=== PATIENT | male | born 1980 | race Caucasian/White ===

== ENCOUNTER → 2022-01-22 | Outpatient (CLI) | payer BC ==
[2022-01-22 15:38] LABS: BASO % 0.3 % (0.0-2.0); EOS % 0.5 % (0.0-4.0); GRAN # 3.9 K/mm3 (1.4-6.5); GRAN % 65.4 % (42.2-75.2); HEMATOCRIT 45.8 % (42.0-52.0); HEMOGLOBIN 15.9 g/dl (13.5-18.0); LYMPH # 1.3 K/mm3 (1.2-3.4); LYMPH % 21.4 % (20.0-51.0); MEAN CELL VOLUME 85 fl (80.0-100.0); MEAN CORPUSCULAR HEMOGLOBIN 30 pg (27-31); MEAN CORPUSCULAR HGB CONC 35 g/dl (33.0-37.0); MEAN PLATELET VOLUME 9.7 fl (7.4-10.4); MONO # 0.7 K/mm3 (0.1-0.6); MONO % 12.2 % (1.7-9.3); PLATELET COUNT 219 K/mm3 (130-400); RED BLOOD COUNT 5.39 M/mm3 (4.20-5.60); REDCELL DISTRIBUTION WIDTH-CV 11.7 % (11.5-14.5)
[2022-01-22 15:57] LABS: ALANINE AMINOTRANSFERASE 68 U/L (0-55); ALBUMIN 3.9 gm/dL (3.5-5.0); ALKALINE PHOSPHATASE 63 U/L (40-150); ANION GAP 13 mmol/L (7-16); AST,SGOT 36 U/L (5-34); BILIRUBIN,TOTAL 1.4 mg/dL (0.2-1.2); BLOOD UREA NITROGEN 19 mg/dL (9-21); CALCIUM 9.7 mg/dL (8.4-10.2); CARBON DIOXIDE 21 mmol/L (22-29); CHLORIDE 104 mmol/L (98-107); CREATININE, serum 0.84 mg/dL (0.72-1.25); GLUCOSE 78 mg/dL (70-99); POTASSIUM 4.4 mmol/L (3.5-4.5); SODIUM 138 mmol/L (136-145); TOTAL PROTEIN 7.3 gm/dL (6.2-8.1)
[2022-01-22 16:16] LABS: THYROID STIMULATING HORMONE <0.003 uIU/mL (0.350-4.940)
[2022-01-23 14:37] LABS: T3 FREE (TRI-IODOTHYRONINE) >20.0 pg/mL (1.7-3.7)
== END ==
LOC: COL.LAB 14:32
PROVIDERS: Family Medicine
DX: R63.4 Abnormal weight loss (principal)